=== PATIENT | female | born 1990 | race Caucasian/White ===

== ENCOUNTER 2016-12-31 20:26 | Emergency (ER) | payer OTHER ==
[~2016-12-31] VITALS: Ht 165.1 cm; Wt 84.0 kg
[2016-12-31 20:47] VITALS: Ht 165.1 cm; Wt 84.0 kg
[2016-12-31] MEDS ORDERED: PENICILLIN G BENZ 1.2 MIL UNIT SYG IM STA (22:23)
[2016-12-31] MEDS ORDERED: ACETAMINOPHEN 500 MG TAB PO STA (22:23)
[2016-12-31 22:25] VITALS: TEMP 101
[2016-12-31] MEDS ORDERED: ACET325T33 PO (22:28)
[2016-12-31] MEDS ORDERED: LORA-186 PO (22:28)
--- NOTE | 2016-12-31 22:31 | ERD ---
ER Documentation Chief Complaint Date/Time DATE: 12/31/16 TIME: 22:29 Chief Complaint pt bib self with c/o sore throat for a few days HPI 26-year-old female presents to the emergency department complaining of a sore throat for the past 2 days. Patient rates the pain 9 out of 10. She admits to having fever and chills. She denies any cough. She states that she is only tried lozenges and ibuprofen earlier this morning without any relief. ROS All systems reviewed and are negative except as per history of present illness. Medications Home Meds Active Scripts Loratadine* (Claritin*) 10 Mg Tablet, 10 MG PO DAILY, #30 TAB Prov:GOKUL GARCIA PA-C 12/31/16 Acetaminophen* (Tylenol*) 325 Mg Tablet, 2 TAB PO Q6 Y for PAIN AND OR ELEVATED TEMP, #30 TAB Prov:GOKUL GARCIA PA-C 12/31/16 Allergies Allergies: Coded Allergies: No Known Allergy (Unverified , 12/31/16) PMhx/Soc Medical and Surgical Hx: pt denies Medical Hx, pt denies Surgical Hx Hx Alcohol Use: No Hx Substance Use: No Hx Tobacco Use: No Smoking Status: Never smoker Physical Exam Vitals Vital Signs Date Time Temp Pulse Resp B/P Pulse Ox O2 Delivery O2 Flow Rate FiO2 12/31/16 22:25 101.0 12/31/16 20:47 99.0 101 18 122/74 99 Physical Exam Const: [Well-developed well-nourished no acute distress Head: Atraumatic Eyes: Normal Conjunctiva ENT: Oropharynx erythematous with tonsillar swelling +1. Neck: Full range of motion..~ No meningismus. Resp: Clear to auscultation bilaterally Cardio: Regular rate and rhythm, no murmurs Abd: Soft, non tender, non distended. Normal bowel sounds Skin: No petechiae or rashes Back: No midline or flank tenderness Ext: No cyanosis, or edema Neur: Awake and alert Psych: Normal Mood and Affect Results 24 hrs Current Medications Medications (Trade) Dose Ordered Sig/[place] Route PRN Reason Start Time Stop Time Status Last Admin Dose Admin Acetaminophen (Tylenol Tab) 1,000 mg ONCE STAT PO 12/31/16 22:23 12/31/16 22:26 DC Penicillin G Benzathine (Bicillin La) 1,200,000 units ONCE STAT IM 12/31/16 22:23 12/31/16 22:26 DC Procedures/MDM This is a 26-year-old female presenting to the emergency department with pharyngitis, viral versus strep. There was no evidence of peritonsillar or retropharyngeal abscess. Airways intact. Stable vital signs. Patient is febrile and was given Tylenol, fever trend downward. In the ED patient was given penicillin injection for possible strep. Prescription for Tylenol was provided. Discussed return to the emergency department for any worsening sinus symptoms patient understands and agrees this plan Departure Diagnosis: Primary Impression: Pharyngitis Condition: Stable Patient Instructions: Pharyngitis, Strep (Presumed), Pharyngitis, Viral Additional Instructions: FOLLOW UP WITH YOUR PRIMARY CARE PHYSICIAN TOMORROW.Return to this facility if you are not improving as expected. Take all medicines as directed. Return to this facility if you are not improving as expected. GOKUL GARCIA PA-C Dec 31, 2016 22:31
== END 2016-12-31 23:24 | disposition home or self-care (01) ==
LOC: FTE 20:26
DX: J02.9 Acute pharyngitis, unspecified (principal)
CPT/HCPCS: 96372; J0561; Z7502; Z7610